=== PATIENT | female | born 1970 | race Caucasian/White ===

== ENCOUNTER 2017-09-26 16:42 | Emergency (ER) | payer MEDICAID ==
[~2017-09-26] VITALS: Ht 149.9 cm; Wt 100.0 kg
[~2017-09-26 16:42] MED LIST: ALBU90AE INH; BUSP10TA PO; DIAZ10TA; DIAZ10TA PO; DIAZ5TAB PO; FURO40TA6 PO; HYDR-3240 PO; LISI-167 PO; lisinopril; prozac
[2017-09-26] MEDS ORDERED: ALBUTEROL/IPRATROPIUM 2.5MG/0.5MG, 3 ML NPPB ONE (17:00)
[2017-09-26] MEDS ORDERED: ALBUTEROL/IPRATROPIUM 2.5MG/0.5MG, 3 ML ONE (17:00)
[2017-09-26 17:17] LABS: BASOPHILS # (AUTO) 0.04 x10^3/uL (0-0.1); BASOPHILS % (AUTO) 0 % (0-1); EOSINOPHILS # (AUTO) 0.24 x10^3/uL (0-0.4); EOSINOPHILS % (AUTO) 2 % (1-7); LYMPHOCYTES # (AUTO) 3.04 x10^3/uL (1-3.4); LYMPHOCYTES % (AUTO) 26 % (22-44); MD NO; MEAN CORPUSCULAR HEMOGLOBIN 30.2 pg (27.0-34.8); MEAN CORPUSCULAR HGB CONC 33.7 g/dL (32.4-35.8); MEAN CORPUSCULAR VOLUME 89.6 fL (80-100); MEAN PLATELET VOLUME 7.9 fL (7.4-10.4); MONOCYTES # (AUTO) 0.48 x10^3/uL (0.2-0.8); MONOCYTES % (AUTO) 4 % (2-9); NEUTROPHILS % (AUTO) 67 % (42-75); PLATELET COUNT 402 x10^3/uL (130-400); RED BLOOD COUNT 4.13 x10^6/uL (3.82-5.3); RED CELL DISTRIBUTION WIDTH 14.4 % (9.6-15.2)
[2017-09-26 17:25] LABS: ALANINE AMINOTRANSFERASE 19 U/L (12-78); ALBUMIN 3.1 g/dL (3.4-5.0); ANION GAP 9 mmol/L (5-15); CALCIUM 8.4 mg/dL (8.5-10.1); CHLORIDE 103 mmol/L (98-107); CREATININE 0.93 mg/dL (0.55-1.02)
[2017-09-26 17:27] VITALS: BP 120/77
[2017-09-26 17:30] LABS: ALKALINE PHOSPHATASE 53 U/L (45-117); BILIRUBIN,TOTAL 0.1 mg/dL (0.2-1.0); TOTAL PROTEIN 6.8 g/dL (6.4-8.2)
[2017-09-26] MEDS ORDERED: FUROSEMIDE 40 MG TABLET ONE (17:39)
[2017-09-26] MEDS ORDERED: LISINOPRIL 10 MG TABLET ONE (17:39)
[2017-09-26] MEDS ORDERED: DIAZEPAM 5 MG TABLET ONE (17:40)
[2017-09-26] MEDS ORDERED: DIAZEPAM 5 MG TABLET PO ONE (18:00)
[2017-09-26] MEDS ORDERED: LISINOPRIL 10 MG TABLET PO ONE (18:00)
[2017-09-26] MEDS ORDERED: FUROSEMIDE 40 MG TABLET PO ONE (18:00)
== END 2017-09-26 19:40 | disposition home or self-care (01) ==
LOC: ED 18:08
DX: J45.21 Mild intermittent asthma with (acute) exacerbation (principal); I11.0 Hypertensive heart disease with heart failure; I50.9 Heart failure, unspecified; G89.29 Other chronic pain; M79.7 Fibromyalgia; F17.200 Nicotine dependence, unspecified, uncomplicated; Z59.9 Problem related to housing and economic circumstances, unspecified; Z88.5 Allergy status to narcotic agent; Z88.8 Allergy status to other drugs, medicaments and biological substances
CPT/HCPCS: 36415; 71045; 80053; 83880; 85025; 93005; 94640; 99285; J7512; J7620

== ENCOUNTER 2017-10-04 22:51 | Emergency (ER) | payer MEDICAID ==
[~2017-10-04] VITALS: Ht 149.9 cm; Wt 101.0 kg
[2017-10-04] MEDS ORDERED: DIPHENHYDRAMINE 50 MG CAPSULE ONE (23:27)
[2017-10-04 23:30] VITALS: BP 114/74
[2017-10-04] MEDS ORDERED: DIPHENHYDRAMINE 25 MG CAPSULE PO ONE (23:30)
== END 2017-10-04 23:59 ==
LOC: ED 23:10
DX: R21 Rash and other nonspecific skin eruption (principal); F17.200 Nicotine dependence, unspecified, uncomplicated; G89.29 Other chronic pain; I50.9 Heart failure, unspecified; I11.0 Hypertensive heart disease with heart failure
CPT/HCPCS: 99283; J7512; Q0163

== ENCOUNTER 2017-10-10 20:12 | Emergency (ER) | payer MEDICAID ==
[~2017-10-10] VITALS: Ht 149.9 cm; Wt 90.9 kg
[2017-10-10 20:13] VITALS: BP 154/94
[2017-10-10] MEDS ORDERED: HYDROcodone/APAP 5/325 TABLET ONE (21:21)
[2017-10-10] MEDS ORDERED: LORazepam 1MG TABLET ONE (21:21)
[2017-10-10] MEDS ORDERED: LORazepam 1MG TABLET PO ONE (21:30)
[2017-10-10] MEDS ORDERED: HYDROcodone/APAP 5/325 TABLET PO ONE (21:30)
== END 2017-10-10 22:03 | disposition home or self-care (01) ==
LOC: ED 21:45
DX: S39.012A Strain of muscle, fascia and tendon of lower back, initial encounter (principal); I10 Essential (primary) hypertension; I50.9 Heart failure, unspecified; F17.200 Nicotine dependence, unspecified, uncomplicated; F41.9 Anxiety disorder, unspecified; W01.0XXA Fall on same level from slipping, tripping and stumbling without subsequent striking against object, initial encounter; Y93.E1 Activity, personal bathing and showering; Y99.8 Other external cause status; Y92.89 Other specified places as the place of occurrence of the external cause
CPT/HCPCS: 72110; 99284

== ENCOUNTER 2017-10-11 19:52 | Emergency (ER) | payer MEDICAID ==
[~2017-10-11] VITALS: Ht 149.9 cm; Wt 91.0 kg
[2017-10-11 19:53] VITALS: BP 112/76
[2017-10-11] MEDS ORDERED: DIAZEPAM 5 MG TABLET ONE (20:28)
[2017-10-11] MEDS ORDERED: DIAZEPAM 5 MG TABLET PO ONE (20:30)
== END 2017-10-11 20:55 | disposition home or self-care (01) ==
LOC: ED 20:15
DX: F41.1 Generalized anxiety disorder (principal); J45.909 Unspecified asthma, uncomplicated; I50.9 Heart failure, unspecified; M79.7 Fibromyalgia; I11.0 Hypertensive heart disease with heart failure; F17.200 Nicotine dependence, unspecified, uncomplicated
CPT/HCPCS: 99283

== ENCOUNTER 2017-11-15 19:21 | Emergency (ER) | payer MEDICAID ==
[~2017-11-15] VITALS: Ht 149.9 cm; Wt 100.0 kg
[2017-11-15] MEDS ORDERED: FURO40TA6 PO (20:04)
[2017-11-15 20:13] LABS: BASOPHILS # (AUTO) 0.06 x10^3/uL (0-0.1); BASOPHILS % (AUTO) 0 % (0-1); EOSINOPHILS # (AUTO) 0.28 x10^3/uL (0-0.4); EOSINOPHILS % (AUTO) 2 % (1-7); LYMPHOCYTES # (AUTO) 3.51 x10^3/uL (1-3.4); LYMPHOCYTES % (AUTO) 26 % (22-44); MD NO; MEAN CORPUSCULAR HEMOGLOBIN 29.9 pg (27.0-34.8); MEAN CORPUSCULAR HGB CONC 33.6 g/dL (32.4-35.8); MEAN PLATELET VOLUME 7.8 fL (7.4-10.4); MONOCYTES # (AUTO) 0.77 x10^3/uL (0.2-0.8); MONOCYTES % (AUTO) 6 % (2-9); NEUTROPHILS # (AUTO) 9.08 x10^3/uL (1.8-6.8); NEUTROPHILS % (AUTO) 66 % (42-75); PLATELET COUNT 413 x10^3/uL (130-400); RED CELL DISTRIBUTION WIDTH 15.4 % (9.6-15.2)
[2017-11-15 20:26] LABS: ALANINE AMINOTRANSFERASE 19 U/L (12-78); ALBUMIN 3.1 g/dL (3.4-5.0); ANION GAP 7 mmol/L (5-15); CALCIUM 9.3 mg/dL (8.5-10.1); CHLORIDE 106 mmol/L (98-107)
[2017-11-15 20:29] LABS: ALKALINE PHOSPHATASE 44 U/L (45-117); BILIRUBIN,TOTAL 0.2 mg/dL (0.2-1.0)
[2017-11-15 20:39] LABS: MICROSCOPIC AUTO
[2017-11-15 20:50] LABS: CULTURE INDICATED? NO
[2017-11-15] MEDS ORDERED: ALBUTEROL/IPRATROPIUM 2.5MG/0.5MG, 3 ML NPPB ONE (21:00)
[2017-11-15 21:36] VITALS: BP 131/53
== END 2017-11-15 21:38 | disposition home or self-care (01) ==
LOC: ED 21:32
DX: J45.41 Moderate persistent asthma with (acute) exacerbation (principal); I11.0 Hypertensive heart disease with heart failure; I50.9 Heart failure, unspecified; G89.29 Other chronic pain; M79.7 Fibromyalgia; E66.9 Obesity, unspecified
CPT/HCPCS: 36415; 71045; 80053; 81001; 83690; 85025; 93005; 94640; 99285; J7620

== ENCOUNTER 2017-12-21 01:35 | Emergency (ER) | payer MEDICAID ==
[~2017-12-21] VITALS: Ht 149.9 cm; Wt 130.0 kg
[2017-12-21] MEDS ORDERED: DIAZEPAM 5 MG TABLET ONE (01:52)
[2017-12-21] MEDS ORDERED: HYDROcodone/APAP 5/325 TABLET ONE (01:52)
[2017-12-21] MEDS ORDERED: DIAZEPAM 5 MG TABLET PO ONE (02:00)
[2017-12-21] MEDS ORDERED: ALBUTEROL SULFATE 2.5 MG/3 ML NPPB ONE (02:00)
[2017-12-21] MEDS ORDERED: HYDROcodone/APAP 5/325 TABLET PO ONE (02:00)
[2017-12-21 02:53] VITALS: BP 138/76
== END 2017-12-21 03:09 | disposition home or self-care (01) ==
LOC: ED 01:50
DX: S39.012A Strain of muscle, fascia and tendon of lower back, initial encounter (principal); S29.012A Strain of muscle and tendon of back wall of thorax, initial encounter; I50.9 Heart failure, unspecified; G89.29 Other chronic pain; I11.0 Hypertensive heart disease with heart failure; F17.210 Nicotine dependence, cigarettes, uncomplicated; Z76.0 Encounter for issue of repeat prescription; X58.XXXA Exposure to other specified factors, initial encounter; Y93.89 Activity, other specified; Y92.89 Other specified places as the place of occurrence of the external cause; Y99.8 Other external cause status
CPT/HCPCS: 94640; 99283; J7613

== ENCOUNTER 2017-12-21 20:07 | Emergency (ER) | payer MEDICAID ==
[~2017-12-21] VITALS: Ht 149.9 cm; Wt 109.5 kg
[2017-12-21 20:12] VITALS: BP 123/83
== END 2017-12-21 21:51 | disposition left against medical advice (07) ==
LOC: ED 21:38
DX: L02.412 Cutaneous abscess of left axilla (principal)
CPT/HCPCS: 99281

== ENCOUNTER 2018-01-04 22:27 | Emergency (ER) | payer MEDICAID ==
[~2018-01-04] VITALS: Ht 170.2 cm; Wt 100.0 kg
[2018-01-04] MEDS ORDERED: ALBUTEROL SULFATE 2.5 MG/3 ML ONE (22:32)
[2018-01-04] MEDS ORDERED: METHOCARBAMOL 750 MG TABLET PO ONE (23:00)
[2018-01-04] MEDS ORDERED: ZIPRASIDONE 20 MG INJ IM ONE ×2 (23:00→23:26)
[2018-01-04] MEDS ORDERED: ALBUTEROL SULFATE 2.5 MG/3 ML NPPB ONE (23:00)
[2018-01-04] MEDS ORDERED: ACETAMINOPHEN 325 MG TABLET PO ONE (23:00)
[2018-01-04] MEDS ORDERED: METHOCARBAMOL 750 MG TABLET ONE ×2 (23:25→23:47)
[2018-01-04] MEDS ORDERED: ACETAMINOPHEN 325 MG TABLET ONE ×2 (23:26→23:47)
[2018-01-04] MEDS ORDERED: ALBUTEROL/IPRATROPIUM 2.5MG/0.5MG, 3 ML ONE (23:28)
[2018-01-04 23:59] VITALS: BP 137/75
== END 2018-01-05 00:02 | disposition home or self-care (01) ==
LOC: ED 22:57
DX: J45.31 Mild persistent asthma with (acute) exacerbation (principal); I50.9 Heart failure, unspecified; I11.0 Hypertensive heart disease with heart failure; G89.29 Other chronic pain; F17.200 Nicotine dependence, unspecified, uncomplicated
CPT/HCPCS: 94640; 96372; 99284; J3486; J7613

== ENCOUNTER 2018-01-05 20:46 | Emergency (ER) | payer MEDICAID ==
[~2018-01-05] VITALS: Ht 149.9 cm; Wt 105.0 kg
[2018-01-05 20:50] VITALS: BP 110/83
[2018-01-05] MEDS ORDERED: ACETAMINOPHEN 500 MG TABLET PO ONE (22:00)
== END 2018-01-05 21:36 | disposition home or self-care (01) ==
LOC: ED 21:30
DX: S39.012A Strain of muscle, fascia and tendon of lower back, initial encounter (principal); I11.0 Hypertensive heart disease with heart failure; I50.9 Heart failure, unspecified; G89.29 Other chronic pain; E66.01 Morbid (severe) obesity due to excess calories; Z68.42 Body mass index [BMI] 45.0-49.9, adult; X58.XXXA Exposure to other specified factors, initial encounter; Y93.89 Activity, other specified; Y92.89 Other specified places as the place of occurrence of the external cause; Y99.8 Other external cause status
CPT/HCPCS: 99282

== ENCOUNTER 2018-01-16 07:59 | Emergency (ER) | payer MEDICAID ==
[~2018-01-16] VITALS: Ht 149.9 cm; Wt 113.5 kg
[2018-01-16 08:16] VITALS: BP 118/78
[2018-01-16] MEDS ORDERED: LORazepam 0.5MG TABLET ONE (08:50)
[2018-01-16] MEDS ORDERED: LORazepam 0.5MG TABLET PO ONE (09:00)
== END 2018-01-16 09:04 | disposition home or self-care (01) ==
LOC: ED 08:58
DX: I11.0 Hypertensive heart disease with heart failure (principal); I50.9 Heart failure, unspecified; Z76.0 Encounter for issue of repeat prescription; M54.9 Dorsalgia, unspecified; G89.29 Other chronic pain; F41.1 Generalized anxiety disorder; F17.200 Nicotine dependence, unspecified, uncomplicated; Z88.6 Allergy status to analgesic agent; Z88.8 Allergy status to other drugs, medicaments and biological substances; Z79.899 Other long term (current) drug therapy
CPT/HCPCS: 99283

== ENCOUNTER 2018-01-21 02:34 | Emergency (ER) | payer MEDICAID ==
[~2018-01-21] VITALS: Ht 149.9 cm; Wt 110.0 kg
[2018-01-21] MEDS ORDERED: HYDROcodone/APAP 5/325 TABLET ONE (03:15)
[2018-01-21] MEDS ORDERED: ONDANSETRON ODT 4 MG ONE (03:15)
[2018-01-21 03:24] LABS: BASOPHILS % (AUTO) 1 % (0-1); EOSINOPHILS # (AUTO) 0.05 x10^3/uL (0-0.4); EOSINOPHILS % (AUTO) 0 % (1-7); LYMPHOCYTES # (AUTO) 3.14 x10^3/uL (1-3.4); LYMPHOCYTES % (AUTO) 22 % (22-44); MD NO; MEAN CORPUSCULAR HEMOGLOBIN 30.8 pg (27.0-34.8); MEAN CORPUSCULAR HGB CONC 33.4 g/dL (32.4-35.8); MEAN CORPUSCULAR VOLUME 92.2 fL (80-100); MEAN PLATELET VOLUME 7.7 fL (7.4-10.4); MONOCYTES # (AUTO) 0.94 x10^3/uL (0.2-0.8); MONOCYTES % (AUTO) 6 % (2-9); NEUTROPHILS # (AUTO) 10.33 x10^3/uL (1.8-6.8); NEUTROPHILS % (AUTO) 71 % (42-75); PLATELET COUNT 432 x10^3/uL (130-400); RED CELL DISTRIBUTION WIDTH 15.8 % (9.6-15.2)
[2018-01-21] MEDS ORDERED: ONDANSETRON ODT 4 MG PO ONE (03:30)
[2018-01-21] MEDS ORDERED: HYDROcodone/APAP 5/325 TABLET PO ONE (03:30)
[2018-01-21 03:36] LABS: ALANINE AMINOTRANSFERASE 19 U/L (12-78); ALBUMIN 3.1 g/dL (3.4-5.0); ANION GAP 5 mmol/L (5-15); CALCIUM 8.8 mg/dL (8.5-10.1); CHLORIDE 104 mmol/L (98-107)
[2018-01-21 03:40] LABS: ALKALINE PHOSPHATASE 48 U/L (45-117); BILIRUBIN,TOTAL 0.2 mg/dL (0.2-1.0); TOTAL PROTEIN 7.1 g/dL (6.4-8.2)
[2018-01-21 03:41] LABS: CULTURE INDICATED? YES; MICROSCOPIC AUTO
[2018-01-21 05:07] VITALS: BP 140/90
== END 2018-01-21 05:09 | disposition home or self-care (01) ==
LOC: ED 02:53
DX: R10.11 Right upper quadrant pain (principal); R10.13 Epigastric pain; F17.200 Nicotine dependence, unspecified, uncomplicated; I50.9 Heart failure, unspecified; I11.0 Hypertensive heart disease with heart failure; J45.909 Unspecified asthma, uncomplicated; Z88.8 Allergy status to other drugs, medicaments and biological substances
CPT/HCPCS: 36415; 76700; 80053; 81001; 83690; 84703; 85025; 87086; 99285; Q0162

== ENCOUNTER 2018-01-25 20:28 | Inpatient (IN) | payer MEDICAID ==
[~2018-01-25] VITALS: Ht 152.4 cm; Wt 111.2 kg
[2018-01-25] MEDS ORDERED: SODIUM CHLORIDE 0.9% 1,000ML IVBOLUS ONE (21:00)
[2018-01-25] MEDS ORDERED: SODIUM CHLORIDE FLUSH 10ML SYR IVF ONE (21:00)
[2018-01-25 21:01] LABS: BASOPHILS # (AUTO) 0.07 x10^3/uL (0-0.1); BASOPHILS % (AUTO) 0 % (0-1); EOSINOPHILS # (AUTO) 0.03 x10^3/uL (0-0.4); EOSINOPHILS % (AUTO) 0 % (1-7); LYMPHOCYTES # (AUTO) 2.43 x10^3/uL (1-3.4); LYMPHOCYTES % (AUTO) 15 % (22-44); MD NO; MEAN CORPUSCULAR HEMOGLOBIN 30.3 pg (27.0-34.8); MEAN CORPUSCULAR VOLUME 91.8 fL (80-100); MONOCYTES # (AUTO) 1.09 x10^3/uL (0.2-0.8); MONOCYTES % (AUTO) 7 % (2-9); NEUTROPHILS # (AUTO) 12.79 x10^3/uL (1.8-6.8); NEUTROPHILS % (AUTO) 78 % (42-75); PLATELET COUNT 407 x10^3/uL (130-400); RED BLOOD COUNT 4.07 x10^6/uL (3.82-5.3); RED CELL DISTRIBUTION WIDTH 15.6 % (9.6-15.2)
[2018-01-25 21:11] LABS: ALANINE AMINOTRANSFERASE 21 U/L (12-78); ALBUMIN 3.2 g/dL (3.4-5.0); ANION GAP 8 mmol/L (5-15); CALCIUM 8.3 mg/dL (8.5-10.1); CHLORIDE 105 mmol/L (98-107); CREATININE 1.05 mg/dL (0.55-1.02)
[2018-01-25 21:13] LABS: ALKALINE PHOSPHATASE 50 U/L (45-117); BILIRUBIN,TOTAL 0.2 mg/dL (0.2-1.0); TOTAL PROTEIN 7.2 g/dL (6.4-8.2)
[2018-01-25 22:27] LABS: MICROSCOPIC INDICATED
[2018-01-25 22:32] LABS: CULTURE INDICATED? NO
[2018-01-25 22:37] LABS: AMPHETAMINE SCREEN, URINE Positive (Negative); BARBITURATE SCREEN, URINE Negative (Negative); BENZODIAZEPINE SCREEN, URINE Negative (Negative); CANNABINOID SCREEN, URINE Positive (Negative); COCAINE SCREEN, URINE Negative (Negative); METHADONE SCREEN, URINE Negative (Negative); OPIATE SCREEN, URINE Negative (Negative)
[2018-01-25 22:47] LABS: ACETAMINOPHEN < 2 mcg/mL (10-30); SALICYLATE LEVEL < 1.7 mg/dL (2.8-20.0)
[2018-01-26] MEDS ORDERED: NALOXONE 0.4 MG/ML, 1ML ONE (00:29)
[2018-01-26] MEDS ORDERED: NALOXONE 0.4 MG/ML, 1ML IVPush ONE ×2 (00:30→01:30)
[2018-01-26] MEDS ORDERED: SODIUM CHLORIDE 0.9% 1,000 ML IV SCH (01:38)
[2018-01-26] MEDS ORDERED: ONDANSETRON 2MG/ML, 2ML IVPush PRN (02:00)
[2018-01-26] MEDS ORDERED: ALBUTEROL SULFATE 2.5 MG/3 ML NPPB PRN (02:00)
[2018-01-26 02:54] VITALS: BP 118/72
[2018-01-26] MEDS: ENOXAPARIN 40 MG/0.4 ML SQ SCH (05:24)
[2018-01-26 05:27] LABS: ALANINE AMINOTRANSFERASE 21 U/L (12-78); ALBUMIN 3.1 g/dL (3.4-5.0); ANION GAP 7 mmol/L (5-15); CALCIUM 8.4 mg/dL (8.5-10.1); CHLORIDE 106 mmol/L (98-107); CREATININE 0.88 mg/dL (0.55-1.02)
[2018-01-26 05:28] LABS: ALKALINE PHOSPHATASE 52 U/L (45-117); BILIRUBIN,TOTAL 0.3 mg/dL (0.2-1.0); TOTAL PROTEIN 7.2 g/dL (6.4-8.2)
[2018-01-26 05:37] LABS: BASOPHILS # (AUTO) 0.17 x10^3/uL (0-0.1); BASOPHILS % (AUTO) 2 % (0-1); EOSINOPHILS # (AUTO) 0.08 x10^3/uL (0-0.4); EOSINOPHILS % (AUTO) 1 % (1-7); LYMPHOCYTES # (AUTO) 2.84 x10^3/uL (1-3.4); LYMPHOCYTES % (AUTO) 25 % (22-44); MD NO; MEAN CORPUSCULAR HEMOGLOBIN 30.5 pg (27.0-34.8); MEAN CORPUSCULAR HGB CONC 32.8 g/dL (32.4-35.8); MEAN CORPUSCULAR VOLUME 92.9 fL (80-100); MEAN PLATELET VOLUME 8.1 fL (7.4-10.4); MONOCYTES # (AUTO) 0.83 x10^3/uL (0.2-0.8); MONOCYTES % (AUTO) 7 % (2-9); NEUTROPHILS # (AUTO) 7.56 x10^3/uL (1.8-6.8); NEUTROPHILS % (AUTO) 66 % (42-75); PLATELET COUNT 385 x10^3/uL (130-400); RED BLOOD COUNT 4.37 x10^6/uL (3.82-5.3); RED CELL DISTRIBUTION WIDTH 15.6 % (9.6-15.2)
[2018-01-26 07:30] VITALS: BP 130/83
[2018-01-26 13:30] VITALS: BP 110/73
[2018-01-26] MEDS ORDERED: IBUPROFEN 200 MG TABLET PO PRN (18:00)
[2018-01-26 19:41] VITALS: BP 128/88
[2018-01-26] MEDS: ACETAMINOPHEN 325 MG TABLET PO PRN (21:36)
[2018-01-27] MEDS ORDERED: SODIUM CHLORIDE 0.9% 1,000 ML IV SCH (01:38)
[2018-01-27 02:00] VITALS: BP 114/80
[2018-01-27] MEDS: ACETAMINOPHEN 325 MG TABLET PO PRN (04:07)
[2018-01-27] MEDS: ENOXAPARIN 40 MG/0.4 ML SQ SCH (05:24)
[2018-01-27 07:40] VITALS: BP 105/69
== END 2018-01-27 10:48 | disposition home or self-care (01) | DRG 917 ==
LOC: ED 20:36 → EDIP 01-26 01:01 → SUATTDRO 01-26 01:36 → 4EST 01-26 02:38
PROVIDERS: ADMIT Hospitalist; ATTEND Hospitalist
PROC: 0T9B70Z Drainage of Bladder with Drainage Device, Via Natural or Artificial Opening (ICD-10-PCS; principal; 2018-01-26)
DX: T43.591A Poisoning by other antipsychotics and neuroleptics, accidental (unintentional), initial encounter (principal); G92 Toxic encephalopathy; F41.1 Generalized anxiety disorder; I11.0 Hypertensive heart disease with heart failure; I50.9 Heart failure, unspecified; J45.909 Unspecified asthma, uncomplicated; M79.7 Fibromyalgia; R32 Unspecified urinary incontinence; T42.6X1A Poisoning by other antiepileptic and sedative-hypnotic drugs, accidental (unintentional), initial encounter; Y92.89 Other specified places as the place of occurrence of the external cause; G89.29 Other chronic pain; M54.9 Dorsalgia, unspecified; Z88.6 Allergy status to analgesic agent; Z72.89 Other problems related to lifestyle; Z91.81 History of falling; F15.90 Other stimulant use, unspecified, uncomplicated
CPT/HCPCS: 36415; 70450; 71045; 80053; 80307; 80329; 81001; 82140; 82962; 83735; 85025; 93005; 96374; J1650; J2310; G0480; J7030

== ENCOUNTER 2018-03-20 08:09 | Emergency (ER) | payer MEDICAID ==
[~2018-03-20] VITALS: Ht 149.9 cm; Wt 109.0 kg
[2018-03-20] MEDS ORDERED: DIPHENHYDRAMINE 50 MG/ML, 1ML ONE (08:56)
[2018-03-20] MEDS ORDERED: METOCLOPRAMIDE 5 MG/ML, 2ML ONE (08:56)
[2018-03-20] MEDS ORDERED: DIPHENHYDRAMINE 50 MG/ML, 1ML IVPush ONE (09:00)
[2018-03-20] MEDS ORDERED: SODIUM CHLORIDE 0.9% 1,000ML IVBOLUS ONE (09:00)
[2018-03-20] MEDS ORDERED: METOCLOPRAMIDE 5 MG/ML, 2ML IVPush ONE (09:00)
[2018-03-20 09:02] VITALS: BP 133/80
[2018-03-20] MEDS ORDERED: SODIUM CHLORIDE FLUSH 10ML SYR IVF ONE (10:00)
== END 2018-03-20 09:32 | disposition left against medical advice (07) ==
LOC: ED 09:02
DX: G44.219 Episodic tension-type headache, not intractable (principal); I11.0 Hypertensive heart disease with heart failure; I50.9 Heart failure, unspecified; G89.29 Other chronic pain; J45.909 Unspecified asthma, uncomplicated; M79.7 Fibromyalgia; F17.200 Nicotine dependence, unspecified, uncomplicated; M54.9 Dorsalgia, unspecified; Z88.6 Allergy status to analgesic agent
CPT/HCPCS: 96374; 99284; J2765; J7030

== ENCOUNTER 2018-04-22 16:43 | Emergency (ER) | payer MEDICAID ==
[~2018-04-22] VITALS: Ht 149.9 cm; Wt 111.7 kg
[2018-04-22 17:08] VITALS: BP 137/89
[2018-04-22] MEDS ORDERED: ACETAMINOPHEN 325 MG TABLET PO ONE (17:30)
[2018-04-22] MEDS ORDERED: ACETAMINOPHEN 325 MG TABLET ONE (17:46)
== END 2018-04-22 18:28 | disposition left against medical advice (07) ==
LOC: ED 18:22
DX: M25.511 Pain in right shoulder (principal); I50.9 Heart failure, unspecified; I11.0 Hypertensive heart disease with heart failure; J45.909 Unspecified asthma, uncomplicated; F17.200 Nicotine dependence, unspecified, uncomplicated; W06.XXXA Fall from bed, initial encounter; Y93.89 Activity, other specified; Y99.8 Other external cause status; Y92.199 Unspecified place in other specified residential institution as the place of occurrence of the external cause
CPT/HCPCS: 93005; 99284

== ENCOUNTER 2018-05-11 12:46 | Emergency (ER) | payer MEDICAID ==
[~2018-05-11] VITALS: Ht 149.9 cm; Wt 105.0 kg
[2018-05-11] MEDS ORDERED: ALBUTEROL/IPRATROPIUM 2.5MG/0.5MG, 3 ML ONE (13:13)
[2018-05-11] MEDS ORDERED: methylPREDNISolone SOD SUCC 125 MG/2 ML ONE (13:28)
[2018-05-11] MEDS ORDERED: FUROSEMIDE 40 MG/4 ML ONE (13:28)
[2018-05-11] MEDS ORDERED: FUROSEMIDE 40 MG/4 ML IVP ONE (13:30)
[2018-05-11] MEDS ORDERED: methylPREDNISolone SOD SUCC 125 MG/2 ML IVP ONE (13:30)
[2018-05-11 13:43] LABS: BASOPHILS # (AUTO) 0.01 x10^3/uL (0-0.1); BASOPHILS % (AUTO) 0 % (0-1); EOSINOPHILS # (AUTO) 0.22 x10^3/uL (0-0.4); EOSINOPHILS % (AUTO) 2 % (1-7); LYMPHOCYTES # (AUTO) 1.42 x10^3/uL (1-3.4); LYMPHOCYTES % (AUTO) 13 % (22-44); MD NO; MEAN CORPUSCULAR HEMOGLOBIN 27.6 pg (27.0-34.8); MEAN CORPUSCULAR HGB CONC 31.7 g/dL (32.4-35.8); MEAN CORPUSCULAR VOLUME 87.3 fL (80-100); MEAN PLATELET VOLUME 7.8 fL (7.4-10.4); MONOCYTES # (AUTO) 0.15 x10^3/uL (0.2-0.8); MONOCYTES % (AUTO) 1 % (2-9); NEUTROPHILS # (AUTO) 9.12 x10^3/uL (1.8-6.8); NEUTROPHILS % (AUTO) 84 % (42-75); PLATELET COUNT 431 x10^3/uL (130-400); RED BLOOD COUNT 4.84 x10^6/uL (3.82-5.3); RED CELL DISTRIBUTION WIDTH 16.5 % (9.6-15.2)
[2018-05-11 13:55] LABS: ALANINE AMINOTRANSFERASE 21 U/L (12-78); ALBUMIN 3.1 g/dL (3.4-5.0); ANION GAP 0 mmol/L (5-15); CALCIUM 7.9 mg/dL (8.5-10.1); CHLORIDE 101 mmol/L (98-107); CREATININE 0.92 mg/dL (0.55-1.02)
[2018-05-11 13:59] LABS: ALKALINE PHOSPHATASE 76 U/L (45-117); BILIRUBIN,TOTAL 0.3 mg/dL (0.2-1.0); TOTAL PROTEIN 7.3 g/dL (6.4-8.2); TROPONIN I < 0.015 ng/mL (0.000-0.045)
[2018-05-11] MEDS: ALBUTEROL/IPRATROPIUM 2.5MG/0.5MG, 3 ML NPPB SCH (14:51)
[2018-05-11] MEDS ORDERED: OXYcodone/APAP 5/325MG TABLET ONE (15:19)
[2018-05-11] MEDS ORDERED: OXYcodone/APAP 5/325MG TABLET PO ONE (15:30)
[2018-05-11 17:07] VITALS: BP 135/88
== END 2018-05-11 17:09 | disposition home or self-care (01) ==
LOC: ED 17:05
DX: J45.41 Moderate persistent asthma with (acute) exacerbation (principal); M79.662 Pain in left lower leg; M76.61 Achilles tendinitis, right leg; Z72.9 Problem related to lifestyle, unspecified; F19.20 Other psychoactive substance dependence, uncomplicated; F41.1 Generalized anxiety disorder; F17.200 Nicotine dependence, unspecified, uncomplicated; I11.0 Hypertensive heart disease with heart failure; I50.9 Heart failure, unspecified
CPT/HCPCS: 36415; 71045; 80053; 83880; 84484; 85025; 93005; 93970; 94640; 96374; 96375; 99284; J1940; J2930; J7620

== ENCOUNTER 2018-12-02 19:45 | Emergency (ER) | payer MEDICAID, OTHER ==
[~2018-12-02] VITALS: Ht 152.4 cm; Wt 120.0 kg
--- NOTE | 2018-12-02 19:59 | NUR ---
BIB [facility]. C/O left toe pain. No injury or ulcer noted. C/O POOLE and dizziness. Denies CP and SOB. Placed on NIBP, pulse ox and fruit dumper. EKG done. Will continue to monitor.
[2018-12-02 20:40] LABS: BASOPHILS # (AUTO) 0.03 x10^3/uL (0-0.1); BASOPHILS % (AUTO) 0 % (0-1); EOSINOPHILS # (AUTO) 0.15 x10^3/uL (0-0.4); EOSINOPHILS % (AUTO) 1 % (1-7); LYMPHOCYTES # (AUTO) 2.33 x10^3/uL (1-3.4); LYMPHOCYTES % (AUTO) 18 % (22-44); MD NO; MEAN CORPUSCULAR HGB CONC 32.5 g/dL (32.4-35.8); MEAN CORPUSCULAR VOLUME 92.2 fL (80-100); MONOCYTES # (AUTO) 0.55 x10^3/uL (0.2-0.8); MONOCYTES % (AUTO) 4 % (2-9); NEUTROPHILS # (AUTO) 10.11 x10^3/uL (1.8-6.8); NEUTROPHILS % (AUTO) 77 % (42-75); PLATELET COUNT 386 x10^3/uL (130-400); RED BLOOD COUNT 4.82 x10^6/uL (3.82-5.3); RED CELL DISTRIBUTION WIDTH 14.5 % (9.6-15.2)
--- NOTE | 2018-12-02 20:47 | NUR ---
VSS. Continues to have C/O dizziness.
[2018-12-02 20:52] LABS: ALANINE AMINOTRANSFERASE 16 U/L (12-78); ALBUMIN 3.7 g/dL (3.4-5.0); ANION GAP 5 mmol/L (5-15); CALCIUM 9.5 mg/dL (8.5-10.1); CHLORIDE 101 mmol/L (98-107)
[2018-12-02 20:57] LABS: ALKALINE PHOSPHATASE 51 U/L (45-117); BILIRUBIN,TOTAL 0.2 mg/dL (0.2-1.0); CREATININE 1.35 mg/dL (0.55-1.02); TOTAL PROTEIN 7.5 g/dL (6.4-8.2); TROPONIN I < 0.015 ng/mL (0.000-0.045)
[2018-12-02] MEDS ORDERED: IBUPROFEN 800 MG TABLET ONE (22:00)
[2018-12-02] MEDS ORDERED: IBUPROFEN 800 MG TABLET PO ONE (22:00)
[2018-12-02 22:08] VITALS: BP 110/68
== END 2018-12-02 22:10 | disposition home or self-care (01) ==
LOC: ED 21:50
DX: B34.9 Viral infection, unspecified (principal); J20.8 Acute bronchitis due to other specified organisms; R42 Dizziness and giddiness; N28.9 Disorder of kidney and ureter, unspecified; I11.0 Hypertensive heart disease with heart failure; I50.9 Heart failure, unspecified; G62.9 Polyneuropathy, unspecified; J45.909 Unspecified asthma, uncomplicated; M79.7 Fibromyalgia; Z88.6 Allergy status to analgesic agent
CPT/HCPCS: 36415; 71045; 80053; 84484; 85025; 93005; 99284

== ENCOUNTER 2019-04-10 02:06 | Emergency (ER) | payer MEDICAID ==
[~2019-04-10] VITALS: Ht 149.9 cm; Wt 106.7 kg
[2019-04-10 02:16] VITALS: BP 122/78
[2019-04-10] MEDS ORDERED: ACETAMINOPHEN 325 MG TABLET PO ONE (02:30)
[2019-04-10] MEDS ORDERED: ACETAMINOPHEN 325 MG TABLET ONE (02:35)
[2019-04-10] MEDS ORDERED: FUROSEMIDE 40 MG TABLET ONE (02:40)
[2019-04-10] MEDS ORDERED: ALBUTEROL/IPRATROPIUM 2.5MG/0.5MG, 3 ML ONE (02:40)
--- NOTE | 2019-04-10 02:45 | NUR ---
rt at bedside
[2019-04-10 02:50] LABS: BASOPHILS # (AUTO) 0.08 x10^3/uL (0-0.1); BASOPHILS % (AUTO) 1 % (0-1); EOSINOPHILS # (AUTO) 0.19 x10^3/uL (0-0.4); EOSINOPHILS % (AUTO) 2 % (1-7); LYMPHOCYTES # (AUTO) 3.34 x10^3/uL (1-3.4); LYMPHOCYTES % (AUTO) 29 % (22-44); MD NO; MEAN CORPUSCULAR HEMOGLOBIN 30.2 pg (27.0-34.8); MEAN CORPUSCULAR HGB CONC 32.5 g/dL (32.4-35.8); MEAN CORPUSCULAR VOLUME 92.9 fL (80-100); MEAN PLATELET VOLUME 7.3 fL (7.4-10.4); MONOCYTES # (AUTO) 0.74 x10^3/uL (0.2-0.8); MONOCYTES % (AUTO) 6 % (2-9); NEUTROPHILS # (AUTO) 7.36 x10^3/uL (1.8-6.8); NEUTROPHILS % (AUTO) 63 % (42-75); PLATELET COUNT 458 x10^3/uL (130-400); RED BLOOD COUNT 4.35 x10^6/uL (3.82-5.3); RED CELL DISTRIBUTION WIDTH 14.4 % (9.6-15.2)
[2019-04-10 02:57] LABS: ALBUMIN 3.4 g/dL (3.4-5.0); ANION GAP 5 mmol/L (5-15); CALCIUM 9.4 mg/dL (8.5-10.1); CHLORIDE 103 mmol/L (98-107); CREATININE 1.24 mg/dL (0.55-1.02)
[2019-04-10] MEDS ORDERED: FUROSEMIDE 40 MG TABLET PO ONE (03:00)
[2019-04-10 03:01] LABS: TROPONIN I < 0.015 ng/mL (0.000-0.045)
[2019-04-10 03:06] LABS: MICROSCOPIC NOT IND
[2019-04-10 03:08] LABS: CULTURE INDICATED? NO
[2019-04-10] MEDS ORDERED: METHOCARBAMOL 750 MG TABLET ONE (03:41)
[2019-04-10] MEDS ORDERED: METHOCARBAMOL 750 MG TABLET PO ONE (04:00)
== END 2019-04-10 04:04 | disposition home or self-care (01) ==
LOC: ED 03:24
DX: J44.1 Chronic obstructive pulmonary disease with (acute) exacerbation (principal); R60.0 Localized edema; Z72.9 Problem related to lifestyle, unspecified; I11.0 Hypertensive heart disease with heart failure; I50.9 Heart failure, unspecified; G89.29 Other chronic pain; J45.909 Unspecified asthma, uncomplicated; F41.1 Generalized anxiety disorder; F17.200 Nicotine dependence, unspecified, uncomplicated
CPT/HCPCS: 36415; 80048; 81003; 82040; 84484; 85025; 94640; 99284

== ENCOUNTER 2019-04-15 20:51 | Emergency (ER) | payer MEDICAID ==
[~2019-04-15] VITALS: Ht 160 cm; Wt 120.0 kg
--- NOTE | 2019-04-15 21:14 | NUR ---
Pt seen recently for sob at [facility]. States dx w/ bronchitis and sent home w/ medication. Pt states increased sob this pm and cpx1 week on L side of chest. denies radiation of pain. Pt denies any major cardiac hx. States hx of chf. Denies any recent long travels. Pt vss. Pt in room asking every person that passes, "can i get some pain meds and a breathing treatment." Md aware and at bedside for assessment. All monitoring intact.
[2019-04-15] MEDS ORDERED: HYDROcodone/APAP 5/325 TABLET ONE (21:23)
[2019-04-15] MEDS ORDERED: HYDROcodone/APAP 5/325 TABLET PO ONE (21:30)
[2019-04-15] MEDS ORDERED: ALBUTEROL SULFATE 2.5 MG/3 ML NPPB ONE (21:30)
[2019-04-15 22:07] LABS: BASOPHILS # (AUTO) 0.02 x10^3/uL (0-0.1); BASOPHILS % (AUTO) 0 % (0-1); EOSINOPHILS # (AUTO) 0.23 x10^3/uL (0-0.4); EOSINOPHILS % (AUTO) 3 % (1-7); LYMPHOCYTES # (AUTO) 2.62 x10^3/uL (1-3.4); LYMPHOCYTES % (AUTO) 30 % (22-44); MD NO; MEAN CORPUSCULAR HEMOGLOBIN 30.7 pg (27.0-34.8); MEAN CORPUSCULAR HGB CONC 32.3 g/dL (32.4-35.8); MEAN CORPUSCULAR VOLUME 95.1 fL (80-100); MEAN PLATELET VOLUME 7.5 fL (7.4-10.4); MONOCYTES # (AUTO) 0.45 x10^3/uL (0.2-0.8); MONOCYTES % (AUTO) 5 % (2-9); NEUTROPHILS # (AUTO) 5.57 x10^3/uL (1.8-6.8); NEUTROPHILS % (AUTO) 63 % (42-75); PLATELET COUNT 429 x10^3/uL (130-400); RED CELL DISTRIBUTION WIDTH 14.9 % (9.6-15.2)
[2019-04-15 22:17] LABS: ALBUMIN 3.2 g/dL (3.4-5.0); ANION GAP 4 mmol/L (5-15); CALCIUM 8.7 mg/dL (8.5-10.1); CHLORIDE 108 mmol/L (98-107); CREATININE 0.87 mg/dL (0.55-1.02)
[2019-04-15 22:21] LABS: TROPONIN I < 0.015 ng/mL (0.000-0.045)
[2019-04-15 22:25] VITALS: BP 130/73
== END 2019-04-15 23:04 | disposition home or self-care (01) ==
LOC: ED 21:57
DX: J44.1 Chronic obstructive pulmonary disease with (acute) exacerbation (principal); R07.89 Other chest pain; F17.200 Nicotine dependence, unspecified, uncomplicated; I11.0 Hypertensive heart disease with heart failure; I50.9 Heart failure, unspecified; G89.29 Other chronic pain
CPT/HCPCS: 36415; 71045; 80048; 82040; 84484; 85025; 93005; 94640; 99284; J7613

== ENCOUNTER 2019-04-20 06:16 | Emergency (ER) | payer MEDICAID ==
[~2019-04-20] VITALS: Ht 160 cm; Wt 136.0 kg
[2019-04-20 06:20] VITALS: BP 147/100
--- NOTE | 2019-04-20 06:24 | NUR ---
KATIE CORRAL FROM THE NURSING HOME. INITIALLY PT WAS TELLING EMS SHE HAD SI, HOWEVER WHEN SHE GOT HERE SHE STATED TO DR XIAO THAT SHE IS FRUSTRATED WITH THE WORKERS WHO ARE HELPING HER WITH LIVING ACCOMADATIONS BECAUSE THEY HAVE BEEN DISRESPECTFUL TO HER AND "THEY TAKE ADVANTAGE OF DISABELED PEOPLE." PT STATES SHE HAD SI 5 YEARS AGO BUT IS DENYING ANY SI/HI DURING DUSCUSSION WITH DR XIAO. PT AGREES WITH THE STATEMENT "SOUNDS LIKE YOU ARE MORE FRUSTRATED WITH THE WORKERS THEN SUICIDAL" PT STATES SHE HAS BEEN OFF OF HER ANTIPSYCHOTIC MEDICATIONS FOR A WEEK OR MORE. PT PLACED IN A SECURED ROOM AND BELONGINGS CAME WITH HER IN A BLACK TRASH BAG PLACED OUTSIDE THE ROOM.
[2019-04-20] MEDS ORDERED: ALBUTEROL/IPRATROPIUM 2.5MG/0.5MG, 3 ML NPPB SCH (06:30)
--- NOTE | 2019-04-20 06:50 | NUR ---
REPORT RECEIVED FROM JUDITH FOREMAN. ASSUMING PRIMARY CARE OF PT. PT ASLEEP ON RAVINDRA. RT AWARE. AWAITING FOR [facility].
[2019-04-20] MEDS ORDERED: IBUPROFEN 600 MG TABLET PO ONE (07:00)
--- NOTE | 2019-04-20 07:01 | NUR ---
PT BEING DISCHARGED IN A STABLE CONDITION. DC INSTRUCTIONS WERE DISCUSSED WITH PT. PT VERBALIZED UNDERSTANDING. PT AMBULATED WITH BELONINGS TO DC DESK. STEADY GAIT.
== END 2019-04-20 07:03 | disposition home or self-care (01) ==
LOC: ED 06:23
DX: F41.1 Generalized anxiety disorder (principal); J44.1 Chronic obstructive pulmonary disease with (acute) exacerbation; G89.29 Other chronic pain; M54.5 Low back pain; F17.210 Nicotine dependence, cigarettes, uncomplicated; I11.0 Hypertensive heart disease with heart failure; I50.9 Heart failure, unspecified
CPT/HCPCS: 99284

== ENCOUNTER 2020-03-06 17:05 | Emergency (ER) | payer MEDICAID ==
[~2020-03-06] VITALS: Ht 142.2 cm; Wt 107.6 kg
[2020-03-06 17:08] VITALS: BP 123/68
[2020-03-06] MEDS ORDERED: ALBUTEROL/IPRATROPIUM 2.5MG/0.5MG, 3 ML NPPB ONE (17:30)
[2020-03-06] MEDS ORDERED: IBUPROFEN 200 MG TABLET PO ONE (17:30)
[2020-03-06] MEDS ORDERED: IBUPROFEN 200 MG TABLET ONE ×2 (17:33)
[2020-03-06] MEDS ORDERED: ALBUTEROL/IPRATROPIUM 2.5MG/0.5MG, 3 ML ONE (17:33)
--- NOTE | 2020-03-06 17:49 | NUR ---
pt medicated per emar. pt tolerated well.
--- NOTE | 2020-03-06 18:40 | NUR ---
pt left without dc papers. dc papers at charge desk.
== END 2020-03-06 18:41 | disposition home or self-care (01) ==
LOC: ED 18:14
DX: J45.41 Moderate persistent asthma with (acute) exacerbation (principal); G89.29 Other chronic pain; M25.512 Pain in left shoulder; R06.02 Shortness of breath; I50.9 Heart failure, unspecified; I11.0 Hypertensive heart disease with heart failure; F17.210 Nicotine dependence, cigarettes, uncomplicated
CPT/HCPCS: 71045; 94640; 99283; 99406; J7512